=== PATIENT | male | born 1990 | race Caucasian/White ===

== ENCOUNTER 2023-12-16 22:24 | Emergency (ER) | payer OTHER ==
[~2023-12-16] VITALS: Ht 172.7 cm; Wt 74.0 kg
[2023-12-16 22:43] VITALS: BP 159/98; PULSE 124; RESP 16; TEMP 98.4; O2SAT 98
== END 2023-12-17 00:01 ==
LOC: ER 22:24
DX: R68.89 Other general symptoms and signs (principal)
CPT/HCPCS: 99283